=== PATIENT | female | born 1990 | race Caucasian/White ===

== ENCOUNTER 2019-04-03 13:21 | Outpatient (REF) | payer SELFPAY ==
--- NOTE | 2019-04-03 13:00 | PAPFT_PTH ---
PATIENT: ANGELA FRANKEL LOC: [facility] U#:[id number] AGE/SX: 29/F ROOM: RE04/03/[address]: JUAN CARLOS Rodas : 1990 BED: DIS: 04/03/2019 SPEC #: [id number] RECD: 04/03/19 17:38 STATUS: DEL RECapo #: [id number] ROME: 04/03/19 13:[address]: Margarita Stanley DEPT: [facility] Cytology RECD BY: Yin Junior ENTERED: 04/03/19 17:38 SP TYPE: PAPFT BRIGIDO DR: None Tissues: 1 - CX/ENDOCX FOR PAP SMEARS Procedures: PAP THIN PREP/[facility] Screening Comments: [id number]
== END 2019-04-03 13:41 ==
LOC: LBN 13:21
PROVIDERS: Visit Provider Nurse Practitioner Family
DX: Z12.4 Encounter for screening for malignant neoplasm of cervix (principal)
CPT/HCPCS: 88142

== ENCOUNTER 2020-04-25 03:26 | Outpatient (CLI) | payer OTHER, SELFPAY ==
[2020-04-25 12:25] LABS: Abs Immature Grans 0.03 10^3/uL (0.0-0.06); Absolute Basophil Count 0.01 10^3/uL (0.0-0.2); Absolute Eosinophil Count 0.05 10^3/uL (0.0-0.7); Absolute Lymphocyte Count 1.55 10^3/uL (1.2-3.4); Absolute Monocyte Count 0.54 10^3/uL (0.1-0.8); Absolute Neutrophil Count 4.87 10^3/uL (1.2-6.7); Basophils % 0.1; Eosinophils % 0.7; HCT 34.5 % (36.0-46.0); HGB 11.7 g/dL (11.2-15.7); Immature Grans % 0.4; MCHC 33.9 % (32.0-36.0); MCV 91.3 fL (80-95); MPV 9.5 fL (8.0-11.0); Monocytes % 7.7; Neutrophils % 69.1; Nucleated RBC 0 %; Platelet Count 222 10^3/uL (130-400); RBC 3.78 10^6/uL (3.93-5.22); RDW 12.7 % (11.7-14.6); RDW-SD 42.2 fL; WBC 7.05 10^3/uL (4.4-10.8)
[2020-04-25 13:48] LABS: TSH (W/Ref FT4) 1.22 uIU/mL (0.36-3.74)
[2020-04-25 15:38] LABS: *AMPHETAMINES SCREEN URINE Negative (Negative); *BARBITURATES SCREEN URINE Negative (Negative); *BENZODIAZEPINES SCREEN URINE Negative (Negative); Cannabinoids THC Negative (Negative); Cocaine Screen,Urine Negative (Negative); METHADONE URINE SCREEN Negative (Negative); OPIATES URINE SCREEN Negative (Negative)
[2020-04-25 15:39] LABS: Tricyclic Antidepressants Negative (Negative)
[2020-04-28 08:15] LABS: Syphilis Total Ab w/Reflex Nonreactive (Nonreactive)
[2020-04-28 10:31] LABS: Varicella IgG Antibody Positive (See Note)
[2020-04-28 10:34] LABS: Rubella IgG Ab (UVM) Positive (See Note)
[2020-04-28 10:46] LABS: Hepatitis B Surface Ag Negative (Negative)
[2020-04-28 11:42] LABS: HIV-1/2 Ag & Ab Screen Negative (Negative)
[2020-04-28 12:17] LABS: Hepatitis C Ab w Rflx HCV PCR Negative (Negative)
[2020-04-28 14:23] LABS: Chlamydia Result Negative (Negative); GC Result Negative (Negative)
[2020-05-01 13:00] LABS: Buprenorphine Negative; Norbuprenorphine Negative
== END 2020-04-25 03:46 ==
PROVIDERS: Visit Provider Advanced Practice Midwife
DX: Z34.91 Encounter for supervision of normal pregnancy, unspecified, first trimester (principal)
CPT/HCPCS: 36415; 80307; 86787; 86803; 86850; 86900; 86901; 87340; 87389; 87491; 87591; 84443; 85025; 86762; 86780; 87086

== ENCOUNTER 2020-07-01 01:29 | Outpatient (CLI) | payer OTHER, SELFPAY ==
--- NOTE | 2020-07-01 07:15 | DI.US_ITS ---
EXAM: US OB 2-3 TRIMESTER CLINICAL HISTORY: routine pnc,Z34.90. TECHNIQUE: Transabdominal obstetrical ultrasound performed. COMPARISON: US PELVIS TRANSVAG from 12/10/2016 FINDINGS: Transabdominal obstetrical ultrasound performed. FINDINGS: Number of fetuses: One. position: Breech heart rate: 169 bpm. Placental location: Anterior. Margin of the placenta is just at the internal os but does not cover i t. BIOMETRIC DATA: Composite Age: 19 weeks 2 days EDC: 11/23/2020 Amniotic fluid index: Amount of fluid is within normal limits. ANATOMICAL SURVEY: Within normal limits. BPD: 4.3cm HC: 16.4cm AC: 14.1cm FL: 3.1cm Cisterna Magna: 4.1 mm Cerebellum: 1.83 cm Composite Age: 19 weeks 2 days EDC by US: 11/23/2020 IMPRESSION: 1. Single live intrauterine gestation as above. 2. Findings consistent with a marginal previa. Follow-up as clinically appropriate. 3. Normal anatomic survey. DATA REPOSITORY:
== END 2020-07-01 01:49 ==
PROVIDERS: Visit Provider Advanced Practice Midwife
DX: O44.22 Partial placenta previa NOS or without hemorrhage, second trimester
CPT/HCPCS: 76805